=== PATIENT | male | born 1950 | race Caucasian/White ===

== ENCOUNTER → 2019-03-07 | Outpatient (CLI) | payer MEDICARE ==
[~2019-03-07] MED LIST: ADULT LOW DOSE81 MG PO; ALTACE 1.25 M1.25 MG PO; AMOXICILLIN500 M1 PO; AVANDIA PO; EDEX20 MCG; FENOFIBRATE160 MG; FISH OIL 1,0001 EAC5 PO; FLOMAX0.4 MG PO; GLIMEPIRIDE4 MG PO; GLUCOPHAGE1000 MG PO; LANTUS SOL100 UNIT/1 SUBQ; LOVAZA1000 MG PO; NEURONTIN 300M300 M2 PO; NORCO 5-325 TA1 EACH PO; ONGLYZA5 MG; PROSCAR 5MG TABL5 MG PO; TOPROL XL100 MG; TOPROL XL50 MG PO; TRAMADOL 50 MG50 MG PO; TRICOR145 MG PO; TRULICITY0.75 MG/0. SUBQ; ZOCOR 20 MG TAB20 M1 PO; ZOCOR40 MG
== END ==
LOC: M.PC 08:00
DX: M51.16 Intervertebral disc disorders with radiculopathy, lumbar region (principal); M47.26 Other spondylosis with radiculopathy, lumbar region; M79.605 Pain in left leg